=== PATIENT | male | born 1990 | race Hispanic/Latino ===

== ENCOUNTER 2022-03-03 17:22 | Emergency (ER) | payer SELFPAY ==
[~2022-03-03] VITALS: Ht 167.6 cm; Wt 85.3 kg
[2022-03-03 19:43] VITALS: BP 127/73
== END 2022-03-03 19:40 | disposition home or self-care (01) ==
LOC: ER 17:33
DX: R06.00 Dyspnea, unspecified (principal); R50.9 Fever, unspecified; M10.9 Gout, unspecified
CPT/HCPCS: 71045; 99283